=== PATIENT | female | born 1955 | race Caucasian/White ===

== ENCOUNTER → 2017-07-30 | Outpatient (CLI) | payer OTHER ==
[~2017-07-30] MED LIST: AMBIEN 5 MG TABL5 M1 PO; ASPIRIN325 PO; CLARITIN10 M2 PO; ELIQUIS2.5 MG PO; FISH OIL 1,001000 M2 PO; FLONASE 0.05%50 MCG NASAL; HYDROCODONE-AP1 EAC6 PO; IBUPROFEN 400400 M2 PO; MAXALT10 MG PO; OXYBUTYNIN 5 MG5 M2 PO; PEPCID20 MG PO; PERCOCET 5-3251 EACH PO; REFRESH CLASSI1 EACH TOP; SIMVASTATIN40 MG PO
== END ==
LOC: M.RAD 10:41
DX: M17.0 Bilateral primary osteoarthritis of knee (principal)

== ENCOUNTER 2017-10-15 06:07 | Inpatient (IN) | payer OTHER ==
[2017-10-07 09:38] LABS: ABSOLUTE BASOPHILS 0.1 thou/uL (0.0-0.2); ABSOLUTE EOSINOPHILS 0.3 thou/uL (0.0-0.7); ABSOLUTE LYMPHOCYTES 2.2 thou/uL (0.8-5.3); ABSOLUTE MONOCYTES 0.5 thou/uL (0.0-1.2); ABSOLUTE NEUTROPHILS 2.5 thou/uL (1.6-8.1); BASOPHILS 1.3 %; EOSINOPHILS 5.1 %; HEMATOCRIT 39.1 % (37.0-47.0); HEMOGLOBIN 12.9 gm/dL (12.0-15.0); LYMPHOCYTES 38.9 %; MCH 27.7 pg (26.0-34.0); MCHC 32.9 g/dL (28.0-37.0); MCV 84.2 fL (80.0-100.0); MONOCYTES 9.6 %; MPV 9.1 fl. (7.2-11.1); NUCLEATED RBCS 0 /100WBC; PLATELET COUNT* 224 thou/uL (150-400); POLYS 45.1 %; RBC 4.64 mil/uL (4.20-5.00); RDW-CV 14.2 % (10.5-14.5); WBC 5.6 thou/uL (4.0-11.0)
[2017-10-07 10:00] LABS: ALBUMIN 3.7 g/dL (3.4-5.0); CALCIUM 9.6 mg/dL (8.5-10.1); POTASSIUM 4.1 mmol/L (3.5-5.1); TOTAL BILIRUBIN 0.6 mg/dL (<0.1-1.0)
[2017-10-07 10:05] LABS: APTT 26.6 Seconds (25.0-31.3); PROTIME 10.1 Seconds (9.20-11.50)
[2017-10-07 10:46] LABS: ESR (SEDRATE) 6 mm/hr (0-30)
--- NOTE | 2017-10-07 16:02 | EKG ---
[place] [address] ELECTROCARDIOGRAM REPORT Name: GAYLA BUSTOS Room: PRE IN [facility]#: [id number] Admission: Attend Phys: Norman Prado Discharge: Date of : 57 Report #: [id number] THIS REPORT FOR: //name// [facility] Test Date: 2017-10-07 Test Time: 09:04:21 Pat Name: GAYLA JULI Department: Room: Gender: F House Worker General: : 1955 Requested By: Cesar Adorno Order Number: [id number] Reading MD: Sandro Curry Measurements Intervals Manning Rate: 61 P: 81 [place]: 186 QRS: 41 QRSD: 76 T: 46 QT: 406 QTc: 409 Interpretive Statements Sinus rhythm Low voltage, precordial leads No previous ECG available for comparison Electronically Signed On 10-07-2017 16:01:59 CDT by Sandro Curry [email or web address] <ELECTRONICALLY SIGNED> By: Sandro Curry MD, [facility] 10/07/17 1601 0904 0904 Sandro Curry MD, FACC /EPI
[2017-10-07 19:08] LABS: GLYCOHEMOGLOBIN (HGB A1C) 5.5 % (4.8-5.6)
[~2017-10-15] VITALS: Ht 177.8 cm; Wt 104.3 kg
[~2017-10-15 06:07] MED LIST changes: -ELIQUIS2.5 MG PO; -HYDROCODONE-AP1 EAC6 PO; -PERCOCET 5-3251 EACH PO
[2017-10-15 11:15] VITALS: BP 122/85
--- NOTE | 2017-10-15 17:00 | NUR ---
RECIEVED O.T. ORDERS. WILL DEFER TO P.T. AND NURSING AT THIS TIME. PLEASE ORDER FURTHER O.T. SERVICES IF NEEDED.
--- NOTE | 2017-10-15 17:52 | NUR ---
PATENT ARRIVED TO UNIT AT 1620. ALERT AND ORIENTED X4. PAIN BEING MANAGED WITH MEDICATION GIVEN IN PACU AT THIS TIME. DENIES NAUSEA AT THIS TIME. IV IS PATENT AND INFUSING. COMPRESSION DRESSING IN PLACE. ICE PACK IN PLACE. ABRIL HOSE IN PLACE ON RIGHT LEG. VSS ON ROOM AIR. HOURLY ROUNDS HAVE BEEN MAINTAINED SINCE ARRIVING ON UNIT. PATIENT HAS BEEN ORIENTATED TO ROOM. CALL LIGHT IS WITHIN REACH. NURSING WILL CONTINUE TO MONITOR.
[2017-10-15 20:40] VITALS: BP 114/65
[2017-10-16 00:36] VITALS: BP 105/59
[2017-10-16 04:34] VITALS: BP 98/61
[2017-10-16 04:39] LABS: HEMATOCRIT 33.5 % (37.0-47.0); HEMOGLOBIN 10.9 gm/dL (12.0-15.0); MCH 27.4 pg (26.0-34.0); MCHC 32.4 g/dL (28.0-37.0); MCV 84.5 fL (80.0-100.0); MPV 9.1 fl. (7.2-11.1); RBC 3.97 mil/uL (4.20-5.00); RDW-CV 14.6 % (10.5-14.5); WBC 15.6 thou/uL (4.0-11.0)
[2017-10-16 05:05] LABS: CALCIUM 8.7 mg/dL (8.5-10.1); CREATININE 0.7 mg/dL (0.6-1.3); MAGNESIUM 1.8 mg/dL (1.8-2.4); POTASSIUM 4.4 mmol/L (3.5-5.1)
--- NOTE | 2017-10-16 07:46 | NUR ---
PATIENT ALERT AND ORIENTED X 4. VITALS STABLE. RA. LEFT KNEE DRESSING C/D/I. STARTED CPM THIS MORNING, TOLERATING WELL. UP WITH ASSIST X 1 TO BSC. PAIN CONTROLLED WITH PO MEDICATION. HEMAVAC IN PLACE. BED ALARM IN USE. HOURLY ROUNDS. NURSING WILL CONTINUE TO MONITOR.
[2017-10-16 08:15] VITALS: BP 99/59
--- NOTE | 2017-10-16 12:33 | NUR ---
CM SPOKE TO THE PATIENT TO DISCUSS HOME SITUATION, DISCHARGE PLANNING, AND TO INFORM OF THE ROLE OF CM. PRIOR TO ADMISSION PATIENT INDEPENDENT AND ACTIVE. PATIENT WORKS AND DRIVES. PATIENT RESIDES AT HOME ALONE, AND PLANS TO RETURN HOME WITH ASSISTANCE FROM HER SISTER. PATIENT OWNS A WALKER THAT BELONGED TO HER MOTHER, CANE, AND CRUTCHES. CM INFORMED PATIENT THAT PT WOULD ASSESS THE WALKER TO DECIDE IF WALKER IS APPROPRIATE FOR HER. PATIENT HAS NO HX OF HH OR SNF. PATIENTS HOME HAS 3 STEPS TO THE ENTRY AND 0 STEPS INSIDE THE HOME. PATIENT PLANS TO RETURN HOME AND HAS OUTPATIENT PT HERE AT THE HOSPITAL. CM WILL REMAIN AVAILABLE TO ASSIST AND FOLLOW NEEDED.
--- NOTE | 2017-10-16 16:39 | NUR ---
PATIENT ALERT AND ORIENTED X 4. VITAL SIGNS STABLE ON ROOM AIR. UP WITH ASSIST OF ONE WITH GAIT BELT AND WALKER TO THE BATHROOM. IV PATENT WITH FLUIDS INFUSING. PAIN BEING MANAGED WITH PO PAIN MEDICATION. DENIES NAUSEA. ATTENDED MORNING AND AFTERNOON THERAPY AND TOLERATED WELL. FOOT PUMPS IN PLACE BILATERALLY WHILE IN BED. UP TO CHAIR FOR MOST OF EVENING. FALL PRECAUTIONS IN PLACE AND BED/CHAIR ALARM ON. HOURLY ROUNDS MAINTAINED THROUGHOUT THE SHIFT. CALL LIGHT WITHIN REACH. NURSING WILL CONTINUE TO MONITOR.
[2017-10-16 17:42] VITALS: BP 98/60
[2017-10-16 22:00] VITALS: BP 109/66
[2017-10-17] VITALS (8 sets, daily range): BP systolic 97–106; BP diastolic 49–66
[2017-10-17 04:17] LABS: ABSOLUTE LYMPHOCYTES 1.6 thou/uL (0.8-5.3); ABSOLUTE MONOCYTES 1.1 thou/uL (0.0-1.2); ABSOLUTE NEUTROPHILS 5.9 thou/uL (1.6-8.1); BASOPHILS 0.5 %; EOSINOPHILS 0.2 %; HEMATOCRIT 30.6 % (37.0-47.0); HEMOGLOBIN 10.1 gm/dL (12.0-15.0); LYMPHOCYTES 18.8 %; MCH 27.9 pg (26.0-34.0); MCHC 32.9 g/dL (28.0-37.0); MCV 84.9 fL (80.0-100.0); MONOCYTES 13.1 %; MPV 9.3 fl. (7.2-11.1); NUCLEATED RBCS 0 /100WBC; PLATELET COUNT* 174 thou/uL (150-400); POLYS 67.4 %; RDW-CV 14.8 % (10.5-14.5); WBC 8.8 thou/uL (4.0-11.0)
--- NOTE | 2017-10-17 05:31 | NUR ---
PATIENT HAS SLEPT WELL THROUGHOUT THE NIGHT WITHOUT ANY ISSUES. PAIN WELL CONTROLLED. MEDICATIONS GIVEN ORDERED AND CHARTED. VSS ON RA. PATIENT IS UP WITH ASSIST X 1 WITH GAITBELT AND WALKER TO THE BATHROOM AND DOES VERY WELL. DRESSING TO LEFT KNEE IS C/D/I, AND ABRIL INGRAM, SCD'S AND POLAR CARE IN PLACE. IV IN LEFT AC-SL. PATIENT INSTRUCTED TO USE CALL LIGHT WHEN NEEDING ASSISTANCE. HOURLY ROUNDS MADE. WILL CONTINUE WITH PLAN OF CARE AND NURSING TO MONITOR.
[2017-10-17 08:01] LABS: CALCIUM 8.2 mg/dL (8.5-10.1); CREATININE 0.8 mg/dL (0.6-1.3); POTASSIUM 3.6 mmol/L (3.5-5.1); TOTAL BILIRUBIN 0.5 mg/dL (<0.1-1.0)
[2017-10-17] MEDS ORDERED: PERCOCET 5-3251 EACH PO (10:35)
[2017-10-17] MEDS ORDERED: ELIQUIS2.5 MG PO (10:36)
[2017-10-17] MEDS ORDERED: ASPIRIN325 PO (12:02)
--- NOTE | 2017-10-17 12:24 | NUR ---
CM SPOKE TO THE PATIENT TO DISCUSS DISCHARGE PLANNING NEEDS AND ANY QUESTIONS OR CONCERNS THAT SHE MAY HAVE. PATIENT REQUEST HH WITH [facility]. CM SPOKE TO SALOME WITH [facility] TO INFORM OF THE REFERRAL AND FAXED PATIENTS FACESHEET, H&P, AND HH ORDER. SALOME RETURNS CALL AND INFORMS THAT [facility] WILL CONTACT THE PATIENT TO SETUP VISIT. CM WILL REMAIN AVAILABLE TO ASSIST AND FOLLOW NEEDED.
--- NOTE | 2017-10-17 13:00 | NUR ---
PATIENT DISCHARGED FROM UNIT AT 1240. VITAL SIGNS STABLE ON ROOM AIR. UP WITH ASSIST OF ONE WITH WALKER AND GAIT BELT. IV DISCONTINUED. DISCHARGE INSTRUCTIONS, MEDICATION INFORMATION, AND SCRIPTS GIVEN TO PATIENT. LEFT WITH ALL BELONGINGS. PATIENT LEFT WITH FAMILY MEMBER VIA CAR.
--- NOTE | 2017-10-19 14:58 | S ---
[address] [address] SURGICAL PATH RPT PROCEDURE Name: VANESA BUSTOS Room: [address] IN ..#: [id number] Admission: 10/15/17 Date of : 57 Discharge: 10/17/17 Report #: [id number] Path Case #: [id number] PATHOLOGY REPORT COLLECTION DATE: 10/15/2017 RECEIVED DATE: 10/15/2017 SUBMITTING PHYS: Dr. Cesar Adorno OTHER PHYS: Dr. Milan Pedroza SPECIMEN(S) RECEIVED: A.L knee bone * * * * * * * * * * * * FINAL DIAGNOSIS: Bone left knee, total knee replacement: - Benign meniscus and synovium and benign bone and cartilage with severe degenerative changes. (WEI:db; 10/19/2017) PATHOLOGIST: Emerson Car M.D. REPORT ELECTRONICALLY SIGNED BY: Emerson Car M.D. DATE/TIME: 10/19/2017 14:57 * * * * * * * * * * * * GROSS PATHOLOGY: Received in formalin labeled "Vanesa Bustos, bone left knee," are multiple segments of bone, including tibial plateau, measuring 12.7 x 12.2 x 2.8 cm in aggregate dimensions admixed with soft tissue; meniscus is present. The specimen shows focal eburnation of the articular surfaces. Coal Chemist sections of bone and soft tissue are submitted in cassette A1, following decalcification. (DAC; 10/18/2017) CLINICAL HISTORY: Left knee DJD INITIAL CPT CODE(S): A; 48843, 15846 Professional services performed by [facility] at [facility], [address] [place] [address] , [place] [address]. Technical services performed by [facility] at [address] [place] [address], [facility] [address] [place] [address]. [place] [id number] SURGICAL PATH RPT PROCEDURE Name: VANESA BUSTOS Room: [address]#: [id number] Admission: 10/15/17 Date of : 57 Discharge: 10/17/17 Report #: [id number] Path Case #: [id number] [facility] [address] [address] PHONE: [phone] DIRECTOR: Kayode Duarte M.D. * * * END OF REPORT * * *
[2017-11-03] MEDS ORDERED: HYDROCODONE-AP1 EAC6 PO (14:30)
--- NOTE | 2017-11-05 16:14 | OP ---
[address] [address] OPERATIVE REPORT Name: GAYLA BUSTOS Room: [address] IN ..#: [id number] Admission: 10/15/17 Attend Phys: Norman Prado Discharge: 10/17/17 Date of : 57 Report #: [id number] THIS REPORT FOR: //name// CC: Hannah Malloy DICTATED BY: Edwin West DO DATE OF SERVICE: 10/15/2017 PREOPERATIVE DIAGNOSIS: Left knee degenerative joint disease. POSTOPERATIVE DIAGNOSIS: Left knee degenerative joint disease. SURGEON: Cesar Adorno DO ASSISTANTS: 1. Edwin West DO 2. Erick Blue DO OPERATION: Left total knee arthroplasty. ANESTHESIA: General with femoral nerve block. ESTIMATED BLOOD LOSS: 50 mL. SPECIMEN REMOVED: None. COMPLICATIONS: None. ANTIBIOTICS: 2 grams Ancef given preoperatively. IMPLANTS: We used a Duong total knee system with E tibial baseplate, 10 narrow femur, 10 polyethylene insert and a 35 round patella. 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 States that she has had a few years now of bilateral knee pain, left worse than right. Workup has demonstrated bilateral tricompartmental osteoarthritis, left worse than right. During discussions with the patient, she states that she has failed conservative treatment for multiple years now and states that the symptoms are affecting her activities of daily living as well as her ability to perform her job and get patients to stat locations appropriately. Risks, benefits, complications and alternatives and indications for procedure were discussed with the patient include but are not limited to risk of infection, risk of [facility] [address] [place] [address] OPERATIVE REPORT Name: GAYLA BUSTOS Room: [address]#: [id number] Admission: 10/15/17 Attend Phys: Norman Prado Discharge: 10/17/17 Date of : 57 Report #: [id number] intraoperative or postoperative fracture, need for repeat surgery, continued pain dysfunction, stiffness, DVT, pulmonary embolism as well as general risks associated with anesthesia. She voices understanding and wishes to proceed. DESCRIPTION OF PROCEDURE: The patient was seen in the preoperative holding area. Once again, risks, benefits, complications, alternatives and indications for procedure were discussed with the patient. Correct operative site was marked and a femoral nerve block was performed by Anesthesia. She was then transferred to the operative suite, placed supine on the operating table, given the benefit of general anesthesia. She was properly placed on the table and the left lower extremity was prepped and draped in the normal sterile fashion. A timeout was performed. All of the attendants were in agreement with the correct operative site and procedure to be performed. An anterior midline incision was made over the left knee, carried down to joint capsule and a medial mid vastus parapatellar approach was made. We then fully exposed and everted the patella, put the knee in flexion, turned our attention to preparation of the femur. Intramedullary drill was used to find intramedullary canal. An intramedullary guide was inserted and the distal femur cut was performed. We then sized the distal femur and made our 4 in 1 distal femur cuts. Using exterior tibial guide, we took 2 mm off the medial side of the joint and our tibial cut was made and all excess bone osteophytes were removed. We then sacrificed the ACL at this point as well as the medial lateral menisci. We then sized our tibial baseplate, found to be a size E and pinned this into place. The femur was measured to size 10 and the trial femur insert was placed, held into position and at this point we determined that the narrow was a better fit and plan to use a narrow femoral component. We then placed our 10 poly insert into the knee and put the knee through range of motion. This was found to be stable and well balanced. We then made our patellar cut with the patella everted and the knee in approximately 6 degrees of flexion. We then measured and found this to be well sized for a 35 mm patellar round button and the patellar holes were then drilled with our patellar drill guide. At this point, we turned that the tibia just did seem to be in a little bit external rotation, so we repositioned the tibial baseplate and once again retrialed and found a better position overall with better balancing and range of motion. The patella also tracked very well. At this point, all trial components were removed and the knee was thoroughly irrigated with pulsatile lavage and dried. Cement was then mixed and the final components were inserted, mounted into place, held position with a size 10 spacer until cement had fully hardened. We then once again put the knee through range of motion with a size 10 trial insert and determined this to be the proper size and the final polyethylene was then inserted. We then let the tourniquet down and had hemodynamic stability and placed our drain. We then once again irrigated and with #1 Vicryl in a [id number] interrupted fashion of the parapatellar region as well as a locking running vastus repair. The knee was then once again taken through range of motion. This was found to be stable with good patellar tracking and [place]'[address] [address] OPERATIVE REPORT Name: GAYLA BUSTOS Room: [address]#: [id number] Admission: 10/15/17 Attend Phys: Norman Prdao Discharge: 10/17/17 Date of : 57 Report #: [id number] irrigation was performed once again. The skin was then closed with 2-0 Vicryl in simple interrupted fashion followed by 3-0 Stratafix and skin glue. All needle and scrub counts were correct at the end the case x 2. The incision wound is covered with Mepilex soft roll, PolarCare, and Jaden wrap. She was transferred to the PACU in stable condition. DISPOSITION: The patient will be admitted to the floor for postoperative antibiotics as well as physical therapy and pain control. Plan to remove drain on postoperative day 1. She will also be given DVT prophylaxis. <ELECTRONICALLY SIGNED> By: Cesar Adorno DO 11/05/17 1614 1523 [id number] Adorno DO /nt
== END 2017-10-17 12:40 | disposition home health service (06) | DRG 470 ==
LOC: M.PRE 06:07 → M.TBA 10:57 → M.PRE 13:05 → M.ORTHSURG 16:07 → M.PRE 12-03 08:56
PROVIDERS: Orthopaedic Surgery; ADMIT Internal Medicine
PROC: 0SRD0J9 Replacement of Left Knee Joint with Synthetic Substitute, Cemented, Open Approach (ICD-10-PCS; principal; 2017-10-15)
DX: M17.12 Unilateral primary osteoarthritis, left knee (principal); E78.5 Hyperlipidemia, unspecified; G47.00 Insomnia, unspecified; G57.52 Tarsal tunnel syndrome, left lower limb; K21.9 Gastro-esophageal reflux disease without esophagitis; N32.81 Overactive bladder; H04.129 Dry eye syndrome of unspecified lacrimal gland; G43.909 Migraine, unspecified, not intractable, without status migrainosus; Z79.899 Other long term (current) drug therapy; Z79.82 Long term (current) use of aspirin; Z88.1 Allergy status to other antibiotic agents; Z88.8 Allergy status to other drugs, medicaments and biological substances

== ENCOUNTER → 2017-11-09 | Outpatient (CLI) | payer OTHER ==
[~2017-11-09] MED LIST changes: +ELIQUIS2.5 MG PO; +HYDROCODONE-AP1 EAC6 PO; +PERCOCET 5-3251 EACH PO
== END ==
LOC: M.ULTRA 10:30
DX: M79.605 Pain in left leg (principal); M79.89 Other specified soft tissue disorders

== ENCOUNTER 2017-11-26 09:01 | Inpatient (IN) | payer OTHER ==
[2017-11-10 11:58] LABS: ABSOLUTE BASOPHILS 0.1 thou/uL (0.0-0.2); ABSOLUTE EOSINOPHILS 0.2 thou/uL (0.0-0.7); ABSOLUTE LYMPHOCYTES 1.7 thou/uL (0.8-5.3); ABSOLUTE MONOCYTES 0.5 thou/uL (0.0-1.2); ABSOLUTE NEUTROPHILS 2.5 thou/uL (1.6-8.1); EOSINOPHILS 4.7 %; HEMATOCRIT 34.2 % (37.0-47.0); HEMOGLOBIN 11.3 gm/dL (12.0-15.0); LYMPHOCYTES 34.9 %; MCH 27.5 pg (26.0-34.0); MCV 83.3 fL (80.0-100.0); MONOCYTES 9.5 %; MPV 8.1 fl. (7.2-11.1); NUCLEATED RBCS 0 /100WBC; PLATELET COUNT* 251 thou/uL (150-400); POLYS 49.9 %; RBC 4.11 mil/uL (4.20-5.00)
[2017-11-10 12:07] LABS: APTT 27.2 Seconds (25.0-31.3); INR 1.1; PROTIME 10.3 Seconds (9.20-11.50)
[2017-11-10 12:20] LABS: ALBUMIN 3.7 g/dL (3.4-5.0); CALCIUM 9.2 mg/dL (8.5-10.1); CREATININE 0.8 mg/dL (0.6-1.3); TOTAL BILIRUBIN 0.7 mg/dL (<0.1-1.0); TOTAL PROTEIN 6.7 g/dL (6.4-8.2)
[2017-11-10 13:08] LABS: ESR (SEDRATE) 20 mm/hr (0-30)
[~2017-11-26] VITALS: Ht 177.8 cm; Wt 99.8 kg
[2017-11-26 10:05] VITALS: BP 123/77
--- NOTE | 2017-11-26 17:00 | NUR ---
RECIEVED O.T. EVAL AND TX ORDER. WILL DEFER TO P.T. AND NURSING AT THIS TIME. PLEASE ORDER FURTHER O.T. SERVICES IF NEEDED.
[2017-11-26 17:10] VITALS: BP 88/56
[2017-11-26 20:35] VITALS: BP 111/62
[2017-11-27 00:25] VITALS: BP 96/55
[2017-11-27 04:00] VITALS: BP 107/61
[2017-11-27 04:26] LABS: HEMATOCRIT 30.2 % (37.0-47.0); HEMOGLOBIN 9.8 gm/dL (12.0-15.0)
--- NOTE | 2017-11-27 05:21 | NUR ---
PATIENT ALERT AND ORIENTED X 4. VITALS STABLE. PAIN CONTROLLED WITH PO MEDICATION. UP WITH ASSIST X 2 TO BSC, VOIDING ADEQUATELY. HEMOVAC IN PLACE. RIGHT KNEE DRESSING C/D/I. FLUIDS INFUSING PER ORDER. HOURLY ROUNDS. BED ALARM IN USE. NURSING WILL CONTINUE TO MONITOR.
[2017-11-27 09:20] VITALS: BP 92/52
--- NOTE | 2017-11-27 09:46 | NUR ---
CM SPOKE TO THE PATIENT TO DISCISS HOME SITUATION, DISCHARGE PLANNING, AND TO INFORM OF THE ROLE OF CM. PATIENT KNOWN TO THIS CM FROM PREVIOUS ADMISSION. PATIENT ALERT, ORIENTED, INDEPENDENT AND ACTIVE. PATIENT RESIDES AT HOME ALONE, BUT HER SISTER PLANS TO ASSIST HER AT HOME AT D/C. PATIENT OWNS A WALKER, CANE, AND CRUTCHES. PATIENT BROUGHT WALKER WITH HER TO THE HOSPITAL. PATIENT HAS A HX OF HH WITH [facility] AND PLANS TO USE THEIR SERVICES AGAIN AT D/C. PATIENT HAS NO HX OF SNF. CM CONTACTED [facility] TO INFORM OF THE REFERRAL FOR HH, AND FAXED PATIENTS FACESHEET AND H&P. CM WILL REMAIN AVAILABLE TO ASSIST AND FOLLOW NEEDED.
--- NOTE | 2017-11-27 17:32 | NUR ---
ASSUMED CARE OF PATIENT AFTE MORNING REPORT. ALERT AND ORIENTED X4. ASSESSMENT COMPLETED AND CHARTED. VSS ON ROOM AIR. PATIENT HAS HAD NO COMPLAINTS OF NAUSEA OR SOA. PAIN HAS BEEN MANAGED WITH PAIN MEDICATION. PATIENT HAS WORKED WELL WITH THERAPY TODAY AND HAS PROGRESSED WELL. MEPILEX DRESSING TO THE RIGHT KNEE IS CLEAN, DRY AND INTACT. POLAR PACK IN PLACE. IV FLUIDS INFUSED ORDERED AND DISCONTINUED EARLY THIS AFTERNOON. HEMAVAC REMIOVED THIS MORNING BY THE AUTOMATIC SPLICING MACHINE OPERATOR, DRESSING CHANGED THIS AFTERNOON AND POLAR PACK PAD CHANGED WELL BECAUSE IT WAS LEAKING. PATIENT RESTING COMFORTABLY IN BED AT THIS TIME. HOURLY ROUNDS MAINTAINED, CALL LIGHT WITHIN REACH AND NURSING WILL CONTINUE TO MONITOR.
[2017-11-27 20:00] VITALS: BP 95/51
[2017-11-28] VITALS (9 sets, daily range): BP systolic 81–103; BP diastolic 44–63
[2017-11-28 04:25] LABS: HEMATOCRIT 24.5 % (37.0-47.0)
--- NOTE | 2017-11-28 05:11 | NUR ---
ASSUMED CARE OF PT AT 1900 PT ALERT AND ORIENTED X4 BP'S SOFT 90'S/40'S AT BASELINE ALL OTHER VS WNL. PTS MEPALEX AND OLD HEMAVAC DRSG CDI.POSITIVE CMS CHECKS TO RLE PT HAD PAIN MEDS Q4H OVERNIGHT AND HAD 1 DOSE OF FENTANYL 25 MCG ( PER PT REQUESTED DUE TO HX OF BLOOD PRESSURE CHANGES WITH IV NARCOTICS, RECHECKED 92/46) AND THEN SLEPT. WILL CONTINUE PLAN OF CARE.
[2017-11-28] MEDS ORDERED: ELIQUIS2.5 MG PO (15:31)
--- NOTE | 2017-11-28 16:00 | NUR ---
ASSUMED CARE OF PATIENT AFTER MORNING REPORT. ALERT AND ORIENTED X4. ASSESSMENT COMPLETED AND CHARTED. VSS ON ROOM AIR. PATIENT HAS HAD NO COMPLAINTS OF NAUSEA OR SOA. PAIN HAS BEEN MANAGED WITH PAIN MEDICAION. PATIENT HAS WORKED VERY WELL WITH THERAPY TODAY AND PROGRESSED TOWARD GOALS. PATIENT DISCHARGED AT 1445. ALL PERSONAL BELONGINGS, PRESCRIPTIONS, AND DISCHARGE INFORMATION SENT WITH PATIENT UPON DISCHARGE.
--- NOTE | 2018-01-26 11:59 | OP ---
[address] [address] OPERATIVE REPORT Name: GAYLA BUSTOS Room: [address]#: [id number] Admission: 11/26/17 Attend Phys: Norman Prado Discharge: 11/28/17 Date of : 57 Report #: [id number] THIS REPORT FOR: //name// CC: Hannah Malloy DICTATED BY: Patrick Montes DO DATE OF SERVICE: 11/26/2017 PREOPERATIVE DIAGNOSIS: Right knee degenerative joint disease. POSTOPERATIVE DIAGNOSIS: Right knee degenerative joint disease. PROCEDURE PERFORMED: Right total knee arthroplasty. SURGEON: Cesar Adorno DO RESIDENTIAL DOOR UNIT INSTALLER: Patrick Montes DO ANESTHESIA: General and adductor canal block. ESTIMATED BLOOD LOSS: 50 mL. SPECIMENS: None. COMPLICATIONS: None. ANTIBIOTICS: 1 gram IV Ancef preop. TOURNIQUET: Tourniquet time was 62 minutes at 300 mmHg. NOTES: 1 gram IV TXA preop. COMPONENTS: A right total knee arthroplasty using Duong Persona with the following components: F tibial baseplate, a size 10 narrow femoral component, a 10 mm medial congruent poly and a size 35 mm circular patella GROSS PATHOLOGY: Surgical inspection of the knee revealed eburnated bone in all 3 compartments, osteophytic lipping, subchondral sclerosis and a normal appearing joint effusion. INDICATION FOR PROCEDURE: The patient is a very pleasant 61-year-old female who I had the pleasure of seeing in clinic for quite some time. Unfortunately, she has suffered from knee pain for quite some time. She has undergone extensive [facility] [address] [place] [address] OPERATIVE REPORT Name: GAYLA BUSTOS Room: [address] IN [facility]#: [id number] Admission: 11/26/17 Attend Phys: Norman Pardo Discharge: 11/28/17 Date of : 57 Report #: [id number] conservative care consisting of oral anti-inflammatories, intra-articular steroid injections, therapy exercises and lifestyle modifications. Despite this, she continues to have life altering pain. For that reason, we recommended total knee arthroplasty. DESCRIPTION OF PROCEDURE: The patient was seen in the preoperative area. Risks, benefits and alternatives were discussed with the patient. Risks include but are not limited to infection, neurovascular injury, stiffness, possibly requiring repeat surgery, continued pain, worsening pain, thromboembolic event and inherent risks associated with anesthesia. She demonstrated understanding and agreed to proceed. Written consent was obtained. The surgical site was marked. The patient was taken back to the operative suite and placed supine on a well-padded operative table. She was given the benefit of general anesthesia. A well-padded pneumatic tourniquet was applied to the right proximal thigh. The right lower extremity was prepped and draped in a normal sterile fashion. A surgical timeout was performed where the appropriate side, site and procedure were verified. Everyone present was in agreement. Procedure began with some inflation of the tourniquet to 300 mmHg. This was inflated for a total time of 62 minutes. A standard midline incision was made. Sharp dissection was taken down to the level of capsule. A new knife was used to make a standard midvastus arthrotomy. Capsule was released off the medial tibia, also excising the anterior horn of the medial meniscus. The anterior horn of the lateral meniscus was excised and the patella was everted. The fat pad was excised. The femur was drilled and the intramedullary device was used. The distal femoral cutting block was pinned into place and the cut was made in standard fashion. Excess bone was removed. The femur measured 10 and the appropriate 4-in-1 cutting block was pinned into place. The cuts were made in standard fashion with anterior and posterior followed by anterior and posterior chamfer cuts. All excess bone was removed. Next, we turned our attention to the tibia. The extramedullary tibial guide was pinned into place. A standard cut was made measuring 2 degrees off the low medial side. A cut was made in standard fashion. Excess bone was removed. The knee was brought out into extension and a 10 mm extension block was inserted. She achieved full extension and did not have excess varus valgus play. The tibia sized to a size F. This was pinned into place. A trial femur was inserted. A 10 mm trial poly was inserted. The knee was taken through range of motion. She had full flexion and extension with symmetric gaps. There was minimal play with varus valgus stressing in extension. It was also noted to be stable to drawer testing at 90 degrees and throughout mid flexion. We then turned our attention to the patella. The patella was cut in freehand fashion. It was sized to a 35. Three peg holes were drilled. The trial patella was inserted. The knee was again taken through range of motion. [place] [address] OPERATIVE REPORT Name: GAYLA BUSTOS Room: [facility] IN [facility]#: [id number] Admission: 11/26/17 Attend Phys: Milan MikoNorman Benítez Discharge: 11/28/17 Date of : 57 Report #: [id number] ADDENDUM The femoral holes were drilled. The tibia was drilled and then the tibia was prepped in standard fashion with a drill followed by the cruciform punch. All trial components were removed. All bony surfaces were thoroughly irrigated with pulse lavage. The cement was mixed on the back table. All final components were inserted in standard fashion. Excess bone was removed. The 10 mm final poly was inserted. The knee was brought out into full extension. The cement was allowed to harden for approximately 15 minutes. Once the cement was hard, the tourniquet was released with a total time of 62 minutes at 300 mmHg. Orthopedic cocktail was injected throughout. Adequate hemostasis was achieved with Bovie electrocautery. A medium Hemovac drain was inserted. The knee was brought into approximately 90 degrees flexion. The capsule was closed using a #1 Vicryl in a interrupted iewlmb-jb-bimwg fashion. The wound was then again thoroughly irrigated with pulse lavage. The skin was closed with a 2-0 Vicryl in a simple interrupted inverted fashion. This was reinforced with 3-0 Stratafix and skin glue. After the glue dried, sterile dressings were applied including Mepilex and ABRIL hose. The patient was awoken from anesthesia and transferred to the PACU in stable condition. There were no obvious complications. The patient will receive 2 doses of weight-based IV Ancef postoperatively. DVT prophylaxis will be in the form of Eliquis for 2 weeks followed by aspirin 325 b.i.d. She also has SCDs and ABRIL hose while in the hospital. ABRIL hose will be continued postoperatively once discharged as well. She will start therapy postop day #1. <ELECTRONICALLY SIGNED> By: Jamin Beal DO 01/26/18 1159 0630 [id number] Adorno DO /nt
== END 2017-11-28 15:45 | disposition home health service (06) | DRG 470 ==
LOC: M.PRE 09:01 → M.TBA 09:24 → M.PRE 09:30 → M.ORTHSURG 16:41
PROVIDERS: Orthopaedic Surgery; ADMIT Internal Medicine
PROC: 0SRC0J9 Replacement of Right Knee Joint with Synthetic Substitute, Cemented, Open Approach (ICD-10-PCS; principal; 2017-11-27)
DX: M17.0 Bilateral primary osteoarthritis of knee (principal); G43.909 Migraine, unspecified, not intractable, without status migrainosus; K21.9 Gastro-esophageal reflux disease without esophagitis; E78.5 Hyperlipidemia, unspecified; Z79.82 Long term (current) use of aspirin; Z79.899 Other long term (current) drug therapy; Z88.8 Allergy status to other drugs, medicaments and biological substances

== ENCOUNTER → 2018-12-29 | Outpatient (CLI) | payer OTHER ==
[2018-12-29 06:20] LABS: ABSOLUTE BASOPHILS 0.1 thou/uL (0.0-0.2); ABSOLUTE EOSINOPHILS 0.3 thou/uL (0.0-0.7); ABSOLUTE LYMPHOCYTES 1.8 thou/uL (0.8-5.3); ABSOLUTE MONOCYTES 0.7 thou/uL (0.0-1.2); ABSOLUTE NEUTROPHILS 3.1 thou/uL (1.6-8.1); BASOPHILS 1.1 %; EOSINOPHILS 4.6 %; HEMATOCRIT 38.2 % (37.0-47.0); HEMOGLOBIN 12.5 gm/dL (12.0-15.0); LYMPHOCYTES 30.4 %; MCH 27.2 pg (26.0-34.0); MCHC 32.7 g/dL (28.0-37.0); MCV 83.1 fL (80.0-100.0); MONOCYTES 11.4 %; MPV 8.1 fl. (7.2-11.1); NUCLEATED RBCS 0 /100WBC; PLATELET COUNT* 254 thou/uL (150-400); POLYS 52.5 %; RBC 4.59 mil/uL (4.20-5.00); RDW-CV 14.6 % (10.5-14.5); WBC 5.9 thou/uL (4.0-11.0)
[2018-12-29 06:32] LABS: ALBUMIN 3.8 g/dL (3.4-5.0); ALKALINE PHOSPHATASE 119 U/L (46-116); ANION GAP 7 mmol/L (7-16); BUN 18 mg/dL (7-18); CALCIUM 8.9 mg/dL (8.5-10.1); CHLORIDE 105 mmol/L (98-107); CHOLESTEROL 185 mg/dL (<200); CO2 28 mmol/L (21-32); CREATININE 0.8 mg/dL (0.6-1.3); GLUCOSE 99 mg/dL (70-99); HDL CHOLESTEROL 54 mg/dL (>40); LDL CHOLESTEROL 112 mg/dL (<100); POTASSIUM 3.8 mmol/L (3.5-5.1); SGOT 28 U/L (15-37); SGPT 36 U/L (30-65); SODIUM 140 mmol/L (136-145); TC:HDL 3.4 Ratio (Not establshd); TOTAL BILIRUBIN 0.7 mg/dL (<0.1-1.0); TOTAL PROTEIN 7.3 g/dL (6.4-8.2); TRIGLYCERIDE 98 mg/dL (<150); VLDL 20 mg/dL (<40)
[2018-12-29 06:48] LABS: URINE BILIRUBIN NEGATIVE (Negative); URINE BLOOD NEGATIVE (Negative); URINE CLARITY CLEAR; URINE COLOR YELLOW; URINE GLUCOSE-RANDOM NEGATIVE (Negative); URINE KETONES NEGATIVE (Negative); URINE LEUKOCYTES NEGATIVE (Negative); URINE NITRITE NEGATIVE (Negative); URINE PROTEIN NEGATIVE (Negative); URINE SPECIFIC GRAVITY >= 1.030 (1.005-1.030); URINE UROBILINOGEN 0.2 E.U./dl (0.2-1.0)
[2018-12-29 06:59] LABS: SERUM ASSESSMENT Clear
[2018-12-29 11:06] LABS: GLYCOHEMOGLOBIN (HGB A1C) 5.6 % (4.8-5.6)
== END ==
LOC: M.RAD 05:57
PROVIDERS: Family Medicine
DX: Z12.31 Encounter for screening mammogram for malignant neoplasm of breast (principal); E78.5 Hyperlipidemia, unspecified; Z68.33 Body mass index [BMI] 33.0-33.9, adult